=== PATIENT | female | born 1965 | race Caucasian/White ===

== ENCOUNTER 2021-11-18 08:35 | Outpatient (CLI) | payer OTHER | END 2021-11-18 08:49 | disposition home or self-care (01) | LOC: RAD 08:35 | PROVIDERS: ATTEND Internal Medicine Gastroenterology | DX: E04.8 Other specified nontoxic goiter (principal); R13.0 Aphagia ==

== ENCOUNTER 2024-02-12 13:42 | Outpatient (CLI) | payer OTHER | END 2024-02-12 13:55 | disposition home or self-care (01) | LOC: MAMO-SONO 13:42 | DX: N64.4 Mastodynia (principal); R10.2 Pelvic and perineal pain ==